=== PATIENT | male | born 1990 | race Two or more races ===

== ENCOUNTER 2021-05-31 16:09 | Inpatient (IN) | payer OTHER ==
[2021-05-31 17:38] VITALS: BMI 25.5
[2021-05-31] MEDS ORDERED: MAGNESIUM HYDROX 2400MG/30ML ORAL SUSPENSION 30 ML CUP PO PRN (21:15)
[2021-05-31] MEDS ORDERED: NICOTINE POLACRILEX 2 MG GUM BUC PRN (21:15)
[2021-05-31] MEDS ORDERED: LOPERAMIDE HCL 2 MG CAPSULE PO PRN (21:15)
[2021-05-31] MEDS ORDERED: ONDANSETRON *ODT* 4 MG TABLET SL PRN (21:15)
[2021-05-31] MEDS ORDERED: MENTHOL/PHENOL 1 EACH UD MM PRN (21:15)
[2021-05-31] MEDS ORDERED: MAG HYDROX/AL HYDROX/SIMETH 30 ML UNIT-DOSE CUP PO PRN (21:15)
[2021-05-31] MEDS ORDERED: hydrOXYzine PAMOATE 25 MG CAPSULE (FP) PO PRN (21:15)
[2021-05-31] MEDS ORDERED: guaiFENesin 200 MG/10 ML 10 ML UNIT-DOSE CUPS PO PRN (21:15)
[2021-05-31] MEDS ORDERED: P-EPHED 60MG/TRIPROLIDI 2.5MG TABLET PO PRN (21:15)
[2021-05-31] MEDS ORDERED: METHOCARBAMOL 500 MG TABLET PO PRN (21:15)
[2021-05-31] MEDS ORDERED: DICYCLOMINE HCL 10 MG CAPSULE PO PRN (21:15)
[2021-05-31] MEDS ORDERED: BISMUTH SUBSALICYLATE 524 MG/30 ML PO PRN (21:15)
[2021-05-31] MEDS ORDERED: MAGNESIUM CITRATE 300 ML BOTTLE PO PRN (21:15)
[2021-05-31] MEDS ORDERED: ACETAMINOPHEN 325 MG TABLET (FP) PO PRN ×2 (21:15)
[2021-05-31] MEDS ORDERED: IBUPROFEN 400 MG TABLET (FP) PO PRN (21:15)
[2021-05-31] MEDS ORDERED: chlordiazePOXIDE HCL 25 MG CAPSULE PO PRN (21:19)
[2021-05-31] MEDS: THIAMINE HCL 100 MG TABLET (FP) PO SCH (22:12)
[2021-05-31] MEDS: chlordiazePOXIDE HCL 25 MG CAPSULE PO SCH (22:12)
[2021-05-31] MEDS: MELATONIN 5 MG TABLETS PO SCH (22:12)
[2021-06-01] MEDS: chlordiazePOXIDE HCL 25 MG CAPSULE PO SCH ×4 (05:21→22:45)
[2021-06-01] MEDS: NICOTINE 21 MG/24 HOURS TOPICAL PATCH TD SCH (10:31)
[2021-06-01] MEDS: PRENATAL VITAMINS W/ FOLIC ACID TABLET (FP) PO SCH (10:32)
[2021-06-01 11:38] LABS: HEMATOCRIT 36.3 % (35.4-49); HEMOGLOBIN 12.4 GM/dL (11.7-16.9); MCH 32.5 pg (25.7-33.7); MCHC 34.2 g/dl (32.0-35.9); MEAN PLT VOLUME 10.1 fl (7.5-11.1); PLATELET COUNT 160 10^3/uL (134-434); RBC 3.82 M/mm3 (4.00-5.60); RDW 14.5 % (11.9-15.9); WHITE BLOOD COUNT 6.2 K/mm3 (4.0-10.0)
[2021-06-01 11:41] LABS: CALCIUM 8.6 mg/dL (8.5-10.1)
[2021-06-01 11:42] LABS: ALBUMIN 3.6 g/dl (3.4-5.0); BLOOD UREA NITROGEN 10.2 mg/dL (7-18)
[2021-06-01 11:45] LABS: CREATININE 0.8 mg/dL (0.55-1.3)
[2021-06-01 11:46] LABS: BILIRUBIN,TOTAL 0.6 mg/dL (0.2-1); TOT PROT 6.2 g/dl (6.4-8.2)
[2021-06-01] MEDS: THIAMINE HCL 100 MG TABLET (FP) PO SCH (22:45)
[2021-06-01] MEDS: MELATONIN 5 MG TABLETS PO SCH (22:45)
[2021-06-02] MEDS: chlordiazePOXIDE HCL 25 MG CAPSULE PO SCH ×2 (06:01→11:31)
[2021-06-02] MEDS: PRENATAL VITAMINS W/ FOLIC ACID TABLET (FP) PO SCH (11:31)
[2021-06-02] MEDS: NICOTINE 21 MG/24 HOURS TOPICAL PATCH TD SCH (11:31)
[2021-06-02 13:09] VITALS: BP 138/73; PULSE 99; TEMP 96.6
[2021-06-03] MEDS ORDERED: chlordiazePOXIDE HCL 10 MG CAPSULE PO PRN
[2021-06-03] MEDS ORDERED: chlordiazePOXIDE HCL 10 MG CAPSULE PO SCH (05:00)
[2021-06-04] MEDS ORDERED: chlordiazePOXIDE HCL 10 MG CAPSULE PO SCH (05:00)
[2021-06-04 10:09] LABS: SARS-CoV-2 NAA Not Detected (Not Detected)
[2021-06-05] MEDS ORDERED: chlordiazePOXIDE HCL 10 MG CAPSULE PO ONE (05:00)
== END 2021-06-02 16:20 | disposition left against medical advice (07) | DRG 770 ==
LOC: YASAS 16:09 → Y6N 21:32
PROVIDERS: ADMIT Allergy & Immunology; ATTEND Allergy & Immunology
PROC: HZ2ZZZZ Detoxification Services for Substance Abuse Treatment (ICD-10-PCS; principal; 2021-05-31)
DX: F10.230 Alcohol dependence with withdrawal, uncomplicated (principal); F17.213 Nicotine dependence, cigarettes, with withdrawal; F19.24 Other psychoactive substance dependence with psychoactive substance-induced mood disorder; Z21 Asymptomatic human immunodeficiency virus [HIV] infection status; R25.3 Fasciculation; R63.8 Other symptoms and signs concerning food and fluid intake; Z86.59 Personal history of other mental and behavioral disorders; Z86.19 Personal history of other infectious and parasitic diseases
CPT/HCPCS: 36415; 80053; 85027; 86780; 87811; 93005; 93010; C9803; U0003; U0005